=== PATIENT | female | born 1925 | race Caucasian/White ===

== ENCOUNTER 2016-06-21 11:57 | Inpatient (IN) | payer MEDICARE ==
[~2016-06-21 11:57] MED LIST: AMARYL 2MG TABLE2 MG PO; ASPIR-LOW81 MG PO; COLACE 100MG C100 MG PO; INVOKANA300 MG PO; JANUVIA100 MG PO; LEVEMIR100 UNIT/1 SQ; MYCOSTATIN CREA15 GM EXT; OMNICEF 300 MG300 MG PO; PRAVASTATIN SOD40 MG PO; VITAMIN D5000 UNIT PO
[2016-06-21 13:46] LABS: HEMOGLOBIN 14.1 gm/dl (12.3-15.3); RED BLOOD COUNT 4.66 M/UL (4.00-5.10)
[2016-06-21 14:13] LABS: BUN/CREATININE RATIO 38 (0-10)
[2016-06-21] MEDS ORDERED: VITAMIN B-121000 MC2 SL (18:14)
[2016-06-21] MEDS ORDERED: TOUJEO SQ (18:15)
[2016-06-22 01:55] LABS: HEMOGLOBIN 12.1 gm/dl (12.3-15.3); RED BLOOD COUNT 4.04 M/UL (4.00-5.10); WHITE BLOOD COUNT 8.6 K/UL (4.5-11.0)
[2016-06-22 02:14] LABS: BUN/CREATININE RATIO 27 (0-10)
[2016-06-24 10:01] LABS: HEMOGLOBIN 12.4 gm/dl (12.3-15.3); RED BLOOD COUNT 4.13 M/UL (4.00-5.10); WHITE BLOOD COUNT 10.4 K/UL (4.5-11.0)
[2016-06-24 10:17] LABS: BUN/CREATININE RATIO 28 (0-10)
[2016-06-26 04:49] LABS: BUN/CREATININE RATIO 26 (0-10)
== END 2016-06-26 13:39 | DRG 690 ==
LOC: ER1 11:57 → MED SURG 4 16:00 → ZEROF 16:00 → MED SURG 4 18:04
PROVIDERS: Emergency Medicine; ADMIT Family Medicine
DX: N39.0 Urinary tract infection, site not specified (principal); F03.90 Unspecified dementia, unspecified severity, without behavioral disturbance, psychotic disturbance, mood disturbance, and anxiety; M19.90 Unspecified osteoarthritis, unspecified site; E11.65 Type 2 diabetes mellitus with hyperglycemia; L89.301 Pressure ulcer of unspecified buttock, stage 1; M13.861 Other specified arthritis, right knee; R55 Syncope and collapse; S89.91XA Unspecified injury of right lower leg, initial encounter; W18.30XA Fall on same level, unspecified, initial encounter; Y92.009 Unspecified place in unspecified non-institutional (private) residence as the place of occurrence of the external cause; E78.5 Hyperlipidemia, unspecified; Z79.82 Long term (current) use of aspirin; Z79.899 Other long term (current) drug therapy
CPT/HCPCS: 36415; 70450; 71010; 73564; 80048; 80053; 81001; 82550; 82553; 82962; 83605; 83874; 84443; 84484; 85025; 85027; 87040; 87086; 93005; 96374; 97110; 99285; G0378; J0696; J7030; J7050

== ENCOUNTER 2016-07-16 17:29 | Inpatient (IN) | payer MEDICARE, OTHER ==
[~2016-07-16] VITALS: Ht 154.9 cm; Wt 58.5 kg
[~2016-07-16 17:29] MED LIST changes: +TOUJEO SQ; +VITAMIN B-121000 MC2 SL
[2016-07-16 19:00] LABS: HEMOGLOBIN 13.7 gm/dl (12.3-15.3); RED BLOOD COUNT 4.49 M/UL (4.00-5.10); WHITE BLOOD COUNT 8.8 K/UL (4.5-11.0)
[2016-07-16 19:25] LABS: BUN/CREATININE RATIO 37 (0-10)
[2016-07-17] MEDS ORDERED: ULTRAM50 MG PO (00:49)
[2016-07-17] MEDS ORDERED: DEPAKOTE SPRIN125 M1 PO (00:50)
[2016-07-17] MEDS ORDERED: BUSPAR 10MG10 MG PO (00:50)
[2016-07-17] MEDS ORDERED: REMERON 15 MG T15 MG PO (00:51)
[2016-07-17] MEDS ORDERED: VOLTAREN100 GM TD (00:53)
[2016-07-17 08:37] LABS: BUN/CREATININE RATIO 33 (0-10)
[2016-07-18 07:09] LABS: BUN/CREATININE RATIO 36 (0-10)
[2016-07-19 06:32] LABS: BUN/CREATININE RATIO 36 (0-10)
[2016-07-19] MEDS ORDERED: GLUCERNA237 ML PO (11:59)
[2016-07-19] MEDS ORDERED: LASIX40 MG PO (12:02)
[2016-07-19] MEDS ORDERED: PRINIVIL5 MG PO (12:02)
[2016-07-19] MEDS ORDERED: TOPROL XL50 MG PO (12:03)
[2016-07-19] MEDS ORDERED: THERAGRAN TAB1 EA PO (12:05)
[2016-07-19] MEDS ORDERED: KLOR-CON M2020 MEQ PO (12:07)
== END 2016-07-19 13:44 | disposition home health service (06) | DRG 291 ==
LOC: ER1 17:29 → ZEROF 21:30 → M/S 21:30 → PROG CARE 07-17 01:24 → M/S 07-17 13:31
PROVIDERS: Emergency Medicine; Family Medicine; ADMIT Emergency Medicine
DX: I13.0 Hypertensive heart and chronic kidney disease with heart failure and stage 1 through stage 4 chronic kidney disease, or unspecified chronic kidney disease (principal); I50.23 Acute on chronic systolic (congestive) heart failure; I47.2 Ventricular tachycardia; I31.3 Pericardial effusion (noninflammatory); R18.8 Other ascites; F02.81 Dementia in other diseases classified elsewhere, unspecified severity, with behavioral disturbance; N18.2 Chronic kidney disease, stage 2 (mild); E11.9 Type 2 diabetes mellitus without complications; E78.5 Hyperlipidemia, unspecified; G30.9 Alzheimer's disease, unspecified; L89.152 Pressure ulcer of sacral region, stage 2; K21.9 Gastro-esophageal reflux disease without esophagitis; M19.90 Unspecified osteoarthritis, unspecified site; K59.09 Other constipation; R74.8 Abnormal levels of other serum enzymes; K02.9 Dental caries, unspecified; H91.90 Unspecified hearing loss, unspecified ear; Z66 Do not resuscitate; Z74.01 Bed confinement status; Z79.82 Long term (current) use of aspirin; Z79.1 Long term (current) use of non-steroidal anti-inflammatories (NSAID); Z79.4 Long term (current) use of insulin; Z79.899 Other long term (current) drug therapy; Z96.642 Presence of left artificial hip joint; Z98.890 Other specified postprocedural states; Z83.3 Family history of diabetes mellitus; Z82.49 Family history of ischemic heart disease and other diseases of the circulatory system; Z80.9 Family history of malignant neoplasm, unspecified
CPT/HCPCS: ECHO; 36415; 51702; 71010; 80048; 80053; 81001; 82803; 82962; 83605; 83880; 84484; 85025; 87040; 93005; 93306; 94640; 94664; 96372; 96374; 96375; 99291; J1650; J1940; J1956